=== PATIENT | female | born 1960 | race Caucasian/White ===

== ENCOUNTER 2016-10-09 11:45 | Outpatient (RCR) | payer MEDICAID ==
[~2016-10-09 11:45] MED LIST: 00186-0372-20 IH; ASPIRIN 81M81 MG/TA2 PO; DESYREL 100MG100 MG PO; IBU600 MG PO; MULTIPLE VITAMI1 CAP PO; PRILOSEC 20MG20 MG PO; PROVENTIL0.09 MG/A1 IH; PROZAC40 MG PO; SINGULAIR 110 MG/TAB PO; STRATTERA60 MG PO; ZOCOR 40MG40 MG PO; ZYRTEC 10MG10 MG PO
== END 2016-10-09 15:11 | disposition home or self-care (01) ==
LOC: MKS.ESL.PT 11:45
DX: M25.511 Pain in right shoulder (principal); G89.29 Other chronic pain

== ENCOUNTER 2017-01-07 15:30 | Outpatient (RCR) | payer MEDICAID | END 2017-01-11 13:27 | disposition still patient (30) | LOC: MKS.ESL.PT 15:30 | DX: M25.511 Pain in right shoulder (principal); M89.8X1 Other specified disorders of bone, shoulder ==

== ENCOUNTER → 2017-04-26 | Outpatient (CLI) | payer OTHER ==
[~2017-04-26] MED LIST changes: +ASPERCREME85G TP; +CROMOLYN SODIUM OU; +CYMBALTA 60MG60 MG PO; +DULCOLAX STOOL100 MG PO; +DULERA1 ARO IH; +LEVOXYL0.025 MG PO; +MAXZIDE-25MG TA1 TAB PO; +MIRALAX PA17 GM/Dose PO; +QNASL80 MCG/Act NS; +ULTRAM 50MG TAB50 MG PO; +ZOCOR 10MG10 MG PO; -ZOCOR 40MG40 MG PO
== END ==
LOC: COL.RAD 09:00
DX: Z01.89 Encounter for other specified special examinations (principal)

== ENCOUNTER 2017-05-04 11:45 | Day surgery (SDC) | payer MEDICAID ==
[~2017-05-04] VITALS: Ht 162.6 cm; Wt 106.4 kg
[2017-05-04] VITALS (7 sets, daily range): BP systolic 109–132; BP diastolic 55–107; PULSE 75–90; TEMP 97.5–97.7
[~2017-05-04 11:45] MED LIST changes: -ASPERCREME85G TP; -CROMOLYN SODIUM OU; -CYMBALTA 60MG60 MG PO; -DULCOLAX STOOL100 MG PO; -DULERA1 ARO IH; -LEVOXYL0.025 MG PO; -MAXZIDE-25MG TA1 TAB PO; -MIRALAX PA17 GM/Dose PO; -QNASL80 MCG/Act NS; -ULTRAM 50MG TAB50 MG PO
[2017-05-04] MEDS ORDERED: DULERA1 ARO IH (12:28)
[2017-05-04] MEDS ORDERED: ULTRAM 50MG TAB50 MG PO (12:33)
[2017-05-04] MEDS ORDERED: DULCOLAX STOOL100 MG PO (12:35)
[2017-05-04] MEDS ORDERED: ASPERCREME85G TP (12:35)
[2017-05-04] MEDS ORDERED: MIRALAX PA17 GM/Dose PO (12:36)
[2017-05-04] MEDS ORDERED: LEVOXYL0.025 MG PO (12:37)
[2017-05-04] MEDS ORDERED: CYMBALTA 60MG60 MG PO (12:38)
[2017-05-04] MEDS ORDERED: MAXZIDE-25MG TA1 TAB PO (12:39)
[2017-05-04] MEDS ORDERED: QNASL80 MCG/Act NS (12:40)
[2017-05-04] MEDS ORDERED: CROMOLYN SODIUM OU (13:04)
== END 2017-05-04 15:50 | disposition home or self-care (01) ==
LOC: SDCO 11:45
DX: Z12.11 Encounter for screening for malignant neoplasm of colon (principal); D12.0 Benign neoplasm of cecum; D12.3 Benign neoplasm of transverse colon; D12.5 Benign neoplasm of sigmoid colon; K57.30 Diverticulosis of large intestine without perforation or abscess without bleeding; K64.4 Residual hemorrhoidal skin tags; Z80.0 Family history of malignant neoplasm of digestive organs
CPT/HCPCS: OP; J2250; J3010; J7030

== ENCOUNTER → 2017-09-06 | Outpatient (CLI) | payer MEDICAID ==
[~2017-09-06] MED LIST changes: +ASPERCREME85G TP; +CROMOLYN SODIUM OU; +CYMBALTA 60MG60 MG PO; +DULCOLAX STOOL100 MG PO; +DULERA1 ARO IH; +LEVOXYL0.025 MG PO; +MAXZIDE-25MG TA1 TAB PO; +MIRALAX PA17 GM/Dose PO; +QNASL80 MCG/Act NS; +ULTRAM 50MG TAB50 MG PO
== END ==
LOC: COL.PUL 12:17
DX: R05 Cough (principal)

== ENCOUNTER → 2018-08-11 | Outpatient (CLI) | payer MEDICAID | LOC: MC.RAD 12:42 | DX: Z12.31 Encounter for screening mammogram for malignant neoplasm of breast (principal) ==

== ENCOUNTER 2018-08-17 14:21 | Emergency (ER) | payer MEDICAID ==
[~2018-08-17] VITALS: Ht 162.6 cm; Wt 103.2 kg
[2018-08-17 14:25] VITALS: TEMP 98.2
[2018-08-17] MEDS ORDERED: CYMBALTA 30MG30 MG PO (14:47)
[2018-08-17] MEDS ORDERED: TORADOL 10MG TA10 MG PO (17:13)
[2018-08-17 17:15] VITALS: BP 113/79; PULSE 95
== END 2018-08-17 17:21 | disposition home or self-care (01) ==
LOC: COL.ER 14:21
DX: S32.10XA Unspecified fracture of sacrum, initial encounter for closed fracture (principal); S60.221A Contusion of right hand, initial encounter; I10 Essential (primary) hypertension; F32.9 Major depressive disorder, single episode, unspecified; M79.7 Fibromyalgia; G89.29 Other chronic pain; Z79.82 Long term (current) use of aspirin; W00.0XXA Fall on same level due to ice and snow, initial encounter; Y92.009 Unspecified place in unspecified non-institutional (private) residence as the place of occurrence of the external cause
CPT/HCPCS: J1885

== ENCOUNTER → 2018-09-09 | Outpatient (CLI) | payer MEDICAID ==
[~2018-09-09] MED LIST changes: +CYMBALTA 30MG30 MG PO; +TORADOL 10MG TA10 MG PO
== END ==
LOC: COL.RAD 08:38
DX: S39.92XS Unspecified injury of lower back, sequela (principal)
CPT/HCPCS: A9503

== ENCOUNTER 2018-09-15 14:15 | Outpatient (RCR) | payer MEDICAID | END 2018-09-22 | disposition home or self-care (01) | LOC: MKS.ESL.PT | DX: M79.672 Pain in left foot (principal); M79.671 Pain in right foot ==

== ENCOUNTER 2018-12-08 10:15 | Outpatient (RCR) | payer MEDICAID | END 2018-12-14 09:05 | disposition home or self-care (01) | LOC: MKS.ESL.PT 10:15 | DX: M79.671 Pain in right foot (principal); M79.672 Pain in left foot ==

== ENCOUNTER 2019-09-29 13:45 | Outpatient (RCR) | payer MEDICAID | END 2019-12-12 | disposition home or self-care (01) | LOC: MKS.ESL.PT | DX: M47.816 Spondylosis without myelopathy or radiculopathy, lumbar region (principal); M47.814 Spondylosis without myelopathy or radiculopathy, thoracic region; M54.41 Lumbago with sciatica, right side; G89.29 Other chronic pain | CPT/HCPCS: G0283-GP ==

== ENCOUNTER 2020-02-13 07:47 | Day surgery (SDC) | payer MEDICAID ==
[~2020-02-13] VITALS: Ht 162.6 cm; Wt 112.7 kg
[2020-02-13] MEDS ORDERED: PROTONIX 40MG T40 MG PO ×2 (08:00→09:18)
[2020-02-13 08:15] VITALS: BP 122/86; PULSE 85; TEMP 97.3
[2020-02-13 09:25] VITALS: BP 122/74; PULSE 105; TEMP 97.1
--- NOTE | 2020-02-13 09:25 | NUR ---
The patient arrived back to [facility] from the endoscopy suite at this time. The patint appears alert and oriented and ambulated from the cart to the recliner in her room with the stand by assistance of two nurses and appeared to tolerate the activity well. The patient does have an increased cough with a small amount of mucus produced at times, Dr. Guevara and the [facility] provider are both aware of the patient's cough. The patient agrees to try some ice water and ice chips at this time. Call light is within reach. Will continue to monitor the patient.
[2020-02-13 09:40] VITALS: BP 120/86; PULSE 90
--- NOTE | 2020-02-13 09:40 | NUR ---
The patient appears to be tolerating the water well and agrees to try some vanilla pudding at this time. The patient's vital signs appear stable. Call light remains within reach. Will continue to monitor the patient.
[2020-02-13 09:59] VITALS: BP 142/97; PULSE 88
--- NOTE | 2020-02-13 09:59 | NUR ---
The patient has finished her pudding and appeared to tolerate it well. The patient denies wanting anything further ot eat or drink at this time. The patient's vital signs continue to appear stable and her cough appears to have lessened since she ate and drank. Will continue to monitor the patient.
[2020-02-13 10:10] VITALS: BP 127/84; PULSE 85
--- NOTE | 2020-02-13 10:10 | NUR ---
The patient has spoke with Dr. Guevara regarding the findings of her two procedures. The patient is going to call her friend, Moira, who will be her ride home to come pick her up.
--- NOTE | 2020-02-13 10:35 | NUR ---
Discharge instructions were reviewed with the patient at this time. She verbalized understanding and has no questions for the nurse at this time. The patient's IV to her right wrist was removed and a pressure dressing was applied to the site. The nurse instructed the patient to get dressed and notify the staff when she is ready to be escorted out.
--- NOTE | 2020-02-13 10:50 | NUR ---
The patient was escorted out via wheelchair to a private vehicle by ONESIMO James. The patient's belongings and discharge paperwork were sent with her. The patient's friend, Moira, will be her ride home.
== END 2020-02-13 11:00 | disposition home or self-care (01) ==
LOC: SDCO 07:47
DX: Z12.11 Encounter for screening for malignant neoplasm of colon (principal); D12.3 Benign neoplasm of transverse colon; D12.4 Benign neoplasm of descending colon; K57.30 Diverticulosis of large intestine without perforation or abscess without bleeding; K58.9 Irritable bowel syndrome, unspecified; I10 Essential (primary) hypertension; E78.5 Hyperlipidemia, unspecified; E03.9 Hypothyroidism, unspecified; J45.909 Unspecified asthma, uncomplicated; R01.1 Cardiac murmur, unspecified; G47.33 Obstructive sleep apnea (adult) (pediatric); K21.9 Gastro-esophageal reflux disease without esophagitis; M79.7 Fibromyalgia; E66.9 Obesity, unspecified; F32.9 Major depressive disorder, single episode, unspecified; F41.9 Anxiety disorder, unspecified; G89.29 Other chronic pain; M25.512 Pain in left shoulder; K64.0 First degree hemorrhoids; Z79.82 Long term (current) use of aspirin; Z79.899 Other long term (current) drug therapy; Z88.1 Allergy status to other antibiotic agents; Z91.041 Radiographic dye allergy status; Z88.0 Allergy status to penicillin; Z85.43 Personal history of malignant neoplasm of ovary
CPT/HCPCS: J2704; J7120

== ENCOUNTER → 2020-04-22 | Outpatient (CLI) | payer MEDICAID ==
[~2020-04-22] MED LIST changes: +PROTONIX 40MG T40 MG PO
== END ==
LOC: COL.RAD 10:18
DX: R13.14 Dysphagia, pharyngoesophageal phase (principal)

== ENCOUNTER 2020-05-21 14:15 | Outpatient (RCR) | payer MEDICAID | END 2020-07-08 | disposition home or self-care (01) | LOC: MKS.ESL.PT | DX: M75.20 Bicipital tendinitis, unspecified shoulder (principal) ==

== ENCOUNTER 2021-01-16 14:15 | Outpatient (RCR) | payer MEDICAID | END 2021-01-17 08:23 | disposition home or self-care (01) | LOC: WSC 14:15 | DX: M54.31 Sciatica, right side (principal); M54.32 Sciatica, left side; M79.7 Fibromyalgia ==

== ENCOUNTER 2021-01-24 13:30 | Outpatient (RCR) | payer MEDICAID | END 2021-01-30 15:38 | LOC: WSOT 13:30 | DX: M79.645 Pain in left finger(s) (principal); M25.531 Pain in right wrist; M25.532 Pain in left wrist; R20.0 Anesthesia of skin ==

== ENCOUNTER 2021-11-04 14:45 | Outpatient (RCR) | payer MEDICAID | END 2021-11-08 | disposition home or self-care (01) | LOC: MKS.ESL.PT | DX: M54.2 Cervicalgia (principal); M25.572 Pain in left ankle and joints of left foot; G89.29 Other chronic pain ==

== ENCOUNTER → 2021-12-09 | Outpatient (RCR) | payer MEDICAID | END | disposition home or self-care (01) | LOC: MKS.ESL.PT | DX: M54.2 Cervicalgia (principal); M25.572 Pain in left ankle and joints of left foot; G89.29 Other chronic pain ==

== ENCOUNTER 2022-01-06 10:30 | Outpatient (RCR) | payer MEDICAID | END 2022-01-08 | disposition home or self-care (01) | LOC: MKS.ESL.PT | DX: M54.2 Cervicalgia (principal); M25.572 Pain in left ankle and joints of left foot; G89.29 Other chronic pain ==

== ENCOUNTER 2022-02-03 10:15 | Outpatient (RCR) | payer MEDICAID | END 2022-02-08 | disposition home or self-care (01) | LOC: MKS.ESL.PT | DX: M54.2 Cervicalgia (principal); M25.572 Pain in left ankle and joints of left foot; G89.29 Other chronic pain ==

== ENCOUNTER 2022-02-10 15:15 | Outpatient (RCR) | payer MEDICAID | END 2022-03-11 | disposition home or self-care (01) | LOC: MKS.ESL.PT | DX: M54.2 Cervicalgia (principal); M25.572 Pain in left ankle and joints of left foot; G89.29 Other chronic pain ==

== ENCOUNTER → 2022-05-11 | Outpatient (RCR) | payer MEDICAID | END | disposition home or self-care (01) | LOC: WSPT | DX: M54.2 Cervicalgia (principal); M62.838 Other muscle spasm ==

== ENCOUNTER 2022-09-07 10:37 | Outpatient (RCR) | payer MEDICAID | END 2022-09-08 | LOC: WSPT | DX: M21.6X1 Other acquired deformities of right foot (principal); M21.6X2 Other acquired deformities of left foot; W19.XXXD Unspecified fall, subsequent encounter; R26.81 Unsteadiness on feet; R29.898 Other symptoms and signs involving the musculoskeletal system ==

== ENCOUNTER 2022-10-07 11:15 | Outpatient (RCR) | payer MEDICAID | END 2022-10-09 | disposition home or self-care (01) | LOC: WSPT | DX: M21.6X1 Other acquired deformities of right foot (principal); M21.6X2 Other acquired deformities of left foot; R26.81 Unsteadiness on feet; W19.XXXD Unspecified fall, subsequent encounter ==

== ENCOUNTER 2022-10-28 11:15 | Outpatient (RCR) | payer MEDICAID | END 2022-11-08 | disposition home or self-care (01) | LOC: WSPT | DX: M21.6X1 Other acquired deformities of right foot (principal); M21.6X2 Other acquired deformities of left foot; R29.898 Other symptoms and signs involving the musculoskeletal system; R26.81 Unsteadiness on feet; W19.XXXD Unspecified fall, subsequent encounter ==

== ENCOUNTER 2024-01-05 14:15 | Outpatient (RCR) | payer MEDICAID ==
[~2024-01-05 14:15] MED LIST changes: +ASPERCREME85 GM TP; +B-121000 MCG PO; +CALTRATE 600 +1 TAB PO; +CRESTOR5 MG PO; +DULERA1 AR1 IH; +EPA FISH OIL1 SGL PO; +FLEXERIL 1010 MG/TAB PO; +FLONASE NASAL S16 GM NS; +KLOR-CON SPRIN10 MEQ PO; +LYRICA 50MG CAP50 MG PO; +LYRICA 75MG CAP75 MG PO; +MAG-OX 400400 MG/TAB PO; +MASON NATURAL2000 IU PO; +METROCREAM CREA45 GM TP; +MUCINEX 60600 MG/TA1 PO; +NATURE'S BLEND100 M2 PO; +PROLIA60 MG/ML SQ; -QNASL80 MCG/Act NS; +RT ALBUTER2.5 MG/0.5 IH; +SALINE 45 ML45 ML NS; +TYLENOL 8 HR PO; +ZEPBOUND5 MG/0.5 M SQ; +ZITHROMAX 250M250 MG PO; +ZOLOFT 100MG100 MG PO
== END 2024-01-09 | disposition home or self-care (01) ==
LOC: WSPT
DX: M25.511 Pain in right shoulder (principal); M54.6 Pain in thoracic spine; M25.572 Pain in left ankle and joints of left foot; G89.29 Other chronic pain

== ENCOUNTER 2024-01-24 15:00 | Outpatient (RCR) | payer MEDICAID | END 2024-01-24 16:00 | disposition home or self-care (01) | LOC: WSPT 15:00 | DX: M25.511 Pain in right shoulder (principal); M54.6 Pain in thoracic spine; M25.572 Pain in left ankle and joints of left foot; G89.29 Other chronic pain ==

== ENCOUNTER 2024-04-24 09:26 | Day surgery (SDC) | payer MEDICAID ==
[~2024-04-24] VITALS: Ht 162.6 cm; Wt 92.1 kg
[~2024-04-24 09:26] MED LIST changes: +LR 1,000 ML IV SCH; +Ondansetron 4 MG/2 ML VIAL IV PRN
[2024-04-24 10:00] VITALS: BP 136/89; PULSE 77; TEMP 97.4
--- NOTE | 2024-04-24 10:39 | NUR ---
Patient admitted to [facility]. Denies complaints. Admission assessments completed. Consent signed. 22G IV inserted into right hand on second attempt. LR infusing without difficulty. BLE with leg braces. Murmur noted, pt reports that this is chronic. Allergies, medications, and pharmacy confirmed. VSS. Call light within reach.
[2024-04-24] MEDS ORDERED: LIDODERM 5% PATC1 EA TP (10:52)
[2024-04-24] MEDS ORDERED: NARCAN4 MG NS (10:54)
[2024-04-24] MEDS ORDERED: PRESERVISION1 SGL PO (10:54)
[2024-04-24] MEDS ORDERED: MAXZIDE-25MG TA1 TAB PO (10:58)
[2024-04-24] MEDS ORDERED: VITAMIN B12 1541 TAB PO (11:00)
[2024-04-24] MEDS ORDERED: fentaNYL 50 MCG/ML 2 ML VIAL ONE (11:24)
[2024-04-24] MEDS ORDERED: Lidocaine PF 2% (20 MG/ML) 5 ML VIAL ONE (11:24)
[2024-04-24 12:18] VITALS: BP 115/70; PULSE 72
[2024-04-24 12:35] VITALS: BP 120/78; PULSE 64
[2024-04-24 12:50] VITALS: BP 129/98; PULSE 68
--- NOTE | 2024-04-24 16:11 | NUR ---
1218 PATIENT RETURNS TO [facility] [facility] [place] CART. PT AWAKE AND ALERT. RESPIRATIONS UNLABORED. AMBULATED TO RECLINER CHAIR WITH 2:1 SBA. PT DENIES NAUSEA OR ABDOMINAL PAIN. HOOKED UP TO MONITOR AND VS OBTAINED. CALL LIGHT AT SIDE. 1220 PATIENT TOLERATING CRANBERRY JUICE AND MUFFIN WITHOUT NAUSEA OR DIFFICULTY SWALLOWING. 1230 IN ROOM SPEAKING WITH PATIENT. 1240 D/C INSTRUCTIONS REVIEWED WITH PATIENT. PT VERBALIZED UNDERSTANDING AND A COPY OF INSTRUCTIONS PROVIDED IN D/C FOLDER. 1250 PATIENT DRESSES SELF. 1310 PATIENT DISCHARGED FROM UNIT VIA W/C TO A PERSONAL VEHICLE. PT LEFT HOSPITAL IN STABLE CONDITION.
== END 2024-04-24 13:10 | disposition home or self-care (01) ==
LOC: SDCO 09:26
DX: Z12.11 Encounter for screening for malignant neoplasm of colon (principal); D12.2 Benign neoplasm of ascending colon; D12.3 Benign neoplasm of transverse colon; D12.4 Benign neoplasm of descending colon; D12.5 Benign neoplasm of sigmoid colon; K63.5 Polyp of colon; K57.30 Diverticulosis of large intestine without perforation or abscess without bleeding; K64.0 First degree hemorrhoids; Z85.43 Personal history of malignant neoplasm of ovary; J44.9 Chronic obstructive pulmonary disease, unspecified; G47.33 Obstructive sleep apnea (adult) (pediatric); I12.9 Hypertensive chronic kidney disease with stage 1 through stage 4 chronic kidney disease, or unspecified chronic kidney disease; N18.9 Chronic kidney disease, unspecified; Z79.899 Other long term (current) drug therapy
CPT/HCPCS: J2704; J3010; J7120

== ENCOUNTER 2024-05-05 14:04 | Outpatient (CLI) | payer MEDICAID ==
[~2024-05-05 14:04] MED LIST changes: +LIDODERM 5% PATC1 EA TP; -LR 1,000 ML IV SCH; +NARCAN4 MG NS; -Ondansetron 4 MG/2 ML VIAL IV PRN; +PRESERVISION1 SGL PO; +VITAMIN B12 1541 TAB PO
[2024-05-05] MEDS ORDERED: Denosumab 60 MG/ML SYRINGE SQ ONE (14:15)
[2024-05-05 14:16] VITALS: BP 119/75; PULSE 86; TEMP 98
--- NOTE | 2024-05-05 14:35 | NUR ---
PT TOLERATED INJECTION WELL. VS REMAINED WITHIN NORMAL LIMITS. THIS RN WALKED WITH PT BACK DOWN TO MAIN LOBBY SINCE THE PT FORGOT TO BRING HER CANE TO THE APPOINTMENT. PT FREE FROM ACUTE CONCERNS AND COMPLAINTS UPON DISCHARGE.
== END 2024-05-05 14:36 | disposition home or self-care (01) ==
LOC: EUO 14:04
DX: M81.0 Age-related osteoporosis without current pathological fracture (principal)
CPT/HCPCS: J0897